=== PATIENT | female | born 1960 | race African-American/Black ===

== ENCOUNTER 2020-08-27 11:04 | Emergency (ER) | payer OTHER ==
[~2020-08-27] VITALS: Ht 157.5 cm; Wt 51.7 kg
[2020-08-27] MEDS ORDERED: ASA81BEC PO (11:44)
[2020-08-27] MEDS ORDERED: CARVEDILOL3.125 MG PO (11:45)
[2020-08-27] MEDS ORDERED: FOLIC ACID1 MG PO (11:46)
[2020-08-27] MEDS ORDERED: KEPPRA250 MG PO ×2 (11:46→11:47)
[2020-08-27] MEDS ORDERED: FAMOTIDINE 20 M20 MG PO (11:46)
[2020-08-27] MEDS ORDERED: NORCO5 PO (11:48)
[2020-08-27] MEDS ORDERED: MIRALAX119 GM PO (11:48)
[2020-08-27] MEDS ORDERED: PREDNISONE 2.52.5 M1 PO (11:49)
[2020-08-27] MEDS ORDERED: REMERON15 M2 PO (11:49)
[2020-08-27] MEDS ORDERED: SENNA PLUS TAB1 EACH PO (11:50)
[2020-08-27] MEDS ORDERED: SENSIPAR 30 MG30 M1 PO (11:51)
[2020-08-27] MEDS ORDERED: RENVELA0.8 GM PO (11:52)
[2020-08-27] MEDS ORDERED: TYLENOL325 M1 PO (11:53)
[2020-08-27] MEDS ORDERED: ZOFRAN ODT4 MG PO (11:53)
[2020-08-27 12:28] LABS: BASOPHILS 1.2 % (0.0-2.0); EOSINOPHILS 2.7 % (0.0-3.0); HEMATOCRIT 29.6 % (37.0-47.0); HEMOGLOBIN 9.5 gm/dL (12.0-15.0); LYMPHOCYTES 10.1 % (24.0-44.0); MCH 31.2 pg (26.0-34.0); MCHC 32.2 g/dL (28.0-37.0); MCV 96.9 fL (80.0-100.0); MONOCYTES 4.8 % (1.0-8.0); PLATELET COUNT 324 thou/uL (150-400); POLYS 81.2 % (36.0-66.0); RBC 3.06 mil/uL (4.20-5.00); RDW 13.4 % (10.5-14.5)
[2020-08-27 13:26] VITALS: BP 162/68
== END 2020-08-27 14:58 | disposition home or self-care (01) ==
LOC: ER 11:04
PROVIDERS: Emergency Medicine
DX: T82.838A Hemorrhage due to vascular prosthetic devices, implants and grafts, initial encounter (principal); I12.0 Hypertensive chronic kidney disease with stage 5 chronic kidney disease or end stage renal disease; N18.6 End stage renal disease; Z99.2 Dependence on renal dialysis; Z79.82 Long term (current) use of aspirin; Z79.899 Other long term (current) drug therapy